=== PATIENT | male | born 1960 | race Caucasian/White ===

== ENCOUNTER → 2016-11-26 | Outpatient (CLI) | payer MEDICARE, OTHER ==
[2016-11-26 15:16] LABS: HEMATOCRIT 46.8 % (37.9-51.0); HGB HCT DIFFERENCE 1.2; MEAN CORPUSCULAR HEMOGLOBIN 31.6 pg (27.0-33.4); MEAN CORPUSCULAR HGB CONC 34.3 g/dL (32.0-36.0); MEAN CORPUSCULAR VOLUME 92 fl (80-97); RED BLOOD COUNT 5.08 10^6/uL (4.35-5.55)
== END ==
LOC: LAB 14:53
PROVIDERS: ATTEND Specialist
DX: G35 Multiple sclerosis (principal)
CPT/HCPCS: 36415; 84460; 85027

== ENCOUNTER 2016-12-11 22:08 | Emergency (ER) | payer MEDICARE, OTHER ==
--- NOTE | 2016-12-11 22:29 | ER Document Report ---
ED Medical Screen (RME) - General Chief Complaint: Palpitations Stated Complaint: POSSIBLE HEART PALPITATIONS Time seen by provider: 22:27 Mode of Arrival: Medic Information source: Patient Notes: 56-year-old male presents to ED for heart palpitations. States his heart rate went from in the low 30s due to fast for him to count. 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 States he has had one previous heart attack. States he has not had any pain today just to irregular heartbeat. He came in EMS and received aspirin in the EMS. I have greeted and performed a rapid initial assessment of this patient. A comprehensive ED assessment and evaluation of the patient, analysis of test results and completion of medical decision making process will be conducted by an additional ED providers. TRAVEL OUTSIDE OF THE [place] IN LAST 30 DAYS: No - Related Data Allergies/Adverse Reactions: cyclobenzaprine [From Flexeril] Allergy (Verified 07/27/16 08:10) hydroxyzine [From Vistaril] Allergy (Verified 07/27/16 08:10) Past Medical History - Social History Chew tobacco use (# tins/day): No Frequency of alcohol use: Rare Drug Abuse: None Renal/ Medical History: Denies: Hx Peritoneal Dialysis Physical Exam - Vital signs Vitals: Temp Pulse BP Pulse Ox 98.3 F 74 147/80 H 98 12/11/16 22:19 12/11/16 22:19 12/11/16 22:19 12/11/16 22:19 Course - Vital Signs Vital signs: Temp Pulse Resp BP Pulse Ox 98.3 F 74 147/80 H 98 12/11/16 22:19 12/11/16 22:19 12/11/16 22:19 12/11/16 22:19
[2016-12-11 22:47] LABS: ABSOLUTE BASOPHILS # (AUTO) 0.1 10^3/uL (0.0-0.2); ABSOLUTE EOSINOPHILS # (AUTO) 0.2 10^3/uL (0.0-0.6); ABSOLUTE LYMPHOCYTES (AUTO) 0.8 10^3/uL (0.5-4.7); ABSOLUTE MONOCYTES (AUTO) 0.6 10^3/uL (0.1-1.4); ABSOLUTE NEUT (AUTO) 2.8 10^3/uL (1.7-8.2); BASOPHILS % (AUTO) 1.2 % (0-2); EOSINOPHILS % (AUTO) 4.6 % (0-6); HEMATOCRIT 42.8 % (37.9-51.0); HEMOGLOBIN 14.9 g/dL (13.5-17.0); HGB HCT DIFFERENCE 1.9; LYMPHOCYTES % (AUTO) 18.5 % (13-45); MEAN CORPUSCULAR HEMOGLOBIN 31.6 pg (27.0-33.4); MEAN CORPUSCULAR HGB CONC 34.7 g/dL (32.0-36.0); MEAN CORPUSCULAR VOLUME 91 fl (80-97); MONOCYTES % (AUTO) 12.6 % (3-13); SEGMENTED NEUTROPHILS % (AUTO) 63.1 % (42-78); WHITE BLOOD COUNT 4.4 10^3/uL (4.0-10.5)
[2016-12-11 22:51] LABS: PARTIAL THROMBOPLASTIN TIME 27.8 SEC (23.5-35.8); PROTHROMBIN TIME 13.8 SEC (11.4-15.4)
[2016-12-11 22:58] LABS: ALANINE AMINOTRANSFERASE 20 U/L (21-72); ALKALINE PHOSPHATASE 58 U/L (38-126); ANION GAP 9 (5-19); ASPARTATE AMINO TRANSFERASE 14 U/L (17-59); BILIRUBIN,DIRECT 0.1 mg/dL (0.0-0.4); BILIRUBIN,TOTAL 0.5 mg/dL (0.2-1.3); BLOOD UREA NITROGEN 17 mg/dL (7-20); CALCIUM 8.9 mg/dL (8.4-10.2); CARBON DIOXIDE 28 mmol/L (22-30); CHLORIDE 105 mmol/L (98-107); CREATINE KINASE 113 U/L (55-170); GLUCOSE 101 mg/dL (75-110); POTASSIUM 3.6 mmol/L (3.6-5.0); SODIUM 142.1 mmol/L (137-145); TOTAL PROTEIN 6.2 g/dL (6.3-8.2)
[2016-12-11 23:10] LABS: CREATINE KINASE MB 0.62 ng/mL (<4.55)
[2016-12-11 23:17] LABS: TROPONIN I 0.044 ng/mL
--- NOTE | 2016-12-12 04:09 | ER Document Report ---
ED General - General Mode of Arrival: Medic Information source: Patient TRAVEL OUTSIDE OF THE [place] IN LAST 30 DAYS: No - HPI Onset: Other - See history of present illness note <BOUBACAR CARPENTER - Last Filed: 12/12/16 05:25> <MELISSAGIULIANOSCOTT - Last Filed: 12/17/16 21:11> - General Chief Complaint: Palpitations Stated Complaint: POSSIBLE HEART PALPITATIONS Notes: Patient is a 56-year-old male presents to the emergency department for heart palpitations. Patient states that he feels like his heart has flipped. Patient states that her his heartbeat was increased rapidly and then it went back to normal several times. Patient was evaluated by telecommunication engineer and local fire department personnel. 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 Patient states this occurred in [place] and he did not follow up, did not receive heart catheterization, or any further cardiac testing. Patient states his primary care at this time since moving from [place] is [facility]. Patient is allergic to cyclobenzaprine and hydroxyzine. (BOUBACAR CARPENTER) - Related Data Allergies/Adverse Reactions: cyclobenzaprine [From Flexeril] Allergy (Verified 07/27/16 08:10) hydroxyzine [From Vistaril] Allergy (Verified 07/27/16 08:10) Past Medical History - General Information source: Patient - Social History Smoking Status: Former Smoker Chew tobacco use (# tins/day): No Frequency of alcohol use: Rare Drug Abuse: None Family History: None Patient has suicidal ideation: No Patient has homicidal ideation: No <BOUBACAR CARPENTER - Last Filed: 12/12/16 05:25> Review of Systems - Review of Systems Constitutional: No symptoms reported EENT: No symptoms reported Cardiovascular: See HPI, Palpitations Respiratory: No symptoms reported Gastrointestinal: No symptoms reported Genitourinary: No symptoms reported Male Genitourinary: No symptoms reported Musculoskeletal: No symptoms reported Skin: No symptoms reported Hematologic/Lymphatic: No symptoms reported Neurological/Psychological: No symptoms reported -: Yes All other systems reviewed and negative <BOUBACAR CARPENTER - Last Filed: 12/12/16 05:25> Physical Exam - Vital signs Interpretation: Normal - General General appearance: Appears well, Alert In distress: Mild - HEENT Head: Normocephalic, Atraumatic Eyes: Normal Pupils: PERRL Mucous membranes: Moist - Respiratory Respiratory status: No respiratory distress Chest status: Nontender Breath sounds: Normal Chest palpation: Normal - Cardiovascular Rhythm: Regular Heart sounds: Normal auscultation Murmur: No - Abdominal Inspection: Normal Distension: No distension Bowel sounds: Normal Tenderness: Nontender Organomegaly: No organomegaly - Back Back: Normal, Nontender - Extremities General upper extremity: Normal inspection, Normal ROM, Normal strength General lower extremity: Normal inspection, Normal ROM, Normal strength - Neurological Neuro grossly intact: Yes Cognition: Normal Orientation: AAOx4 Grecia Coma Scale Eye Opening: Spontaneous Grecia Coma Scale Verbal: Oriented Grecia Coma Scale Motor: Obeys Commands Warrens Coma Scale Total: 15 Speech: Normal Sensory: Normal - Psychological Associated symptoms: Normal affect, Normal mood - Skin Skin Temperature: Warm Skin Moisture: Dry <BOUBACAR CARPENTER - Last Filed: 12/12/16 05:25> <SCOTT TORRES - Last Filed: 12/17/16 21:11> - Vital signs Vitals: Temp Pulse BP Pulse Ox 98.3 F 74 147/80 H 98 12/11/16 22:19 12/11/16 22:19 12/11/16 22:19 12/11/16 22:19 Course - Laboratory Result Diagrams: 12/11/16 22:30 12/11/16 22:30 <BOUBACAR CARPENTER - Last Filed: 12/12/16 05:25> - Laboratory Result Diagrams: 12/11/16 22:30 12/11/16 22:30 <SCOTT TORRES - Last Filed: 12/17/16 21:11> - Re-evaluation Re-evalutation: 12/12/16 05:34 I personally performed the services described in the documentation, reviewed and edited the documentation which was dictated to my scribe in my presence, and it accurately records my words and actions. Patient presents the emergency department with a chief complaint of palpitations. He says he went over to the fire department he was feel palpitations he thought that his heart rate had went down. He states that the paramedics were wanting a [facility] him initially saying he had ST elevation I reviewed the records and chart said ST elevation consider pericarditis but there was no ST elevation on the strip patient was not having any chest pain or shortness of breath and just having palpitations. On ED arrival he was not having chest pain or shortness of breath and EKG did not show any acute ST segment elevation or depression. He says he had an incident not to far back when he for he moved here in March where he lived that he was having similar type symptoms went to his doctor's office they thought they saw an old ME on his EKG but he was never diagnosed with an ME or saw a qualifications examiner or had cardiac stents placed. At this time he wants to go home they have appointments this morning he's been stable here hemodynamically negative acute labs other than a TSH level. states he can follow primary care physician one to 2 days I recommend he see an outpatient qualifications examiner disease had varying different concerns over the last several months of not been adequately worked up. He states that he will do so and does not want to be admitted to the hospital discharge in stable condition one to 2 day follow-up and discuss reasons for ED return sooner (SCOTT TORRES) - Vital Signs Vital signs: Temp Pulse Resp BP Pulse Ox 98.4 F 73 18 160/82 H 97 12/12/16 02:34 12/12/16 02:34 12/12/16 02:34 12/12/16 05:01 12/12/16 04:51 - Laboratory Laboratory results interpreted by me: 12/11/16 12/11/16 22:30 22:30 AST 14 L ALT 20 L Total Protein 6.2 L TSH 5.47 H Discharge <BOUBACAR CARPENTER - Last Filed: 12/12/16 05:25> <SCOTT TORRES - Last Filed: 12/17/16 21:11> - Discharge Clinical Impression: Palpitations Condition: Stable Disposition: HOME, SELF-CARE Additional Instructions: Palpitations Irregular or rapid heartbeat is called "palpitation." To diagnose the cause of palpitation, we have to "catch it in the act" with an EKG. Sinus Tachycardia: This is a rapid (but NORMAL) rhythm that can be due to fever, pain, anxiety, lack of sleep, over-exertion, or drugs. Cold medications, caffeine, and diet pills are particularly likely to cause tachycardia. Usually , all that's required is rest, reassurance, and avoiding caffeine, alcohol, nicotine, and unnecessary medicines. Paroxysmal Atrial Tachycardia (PAT): This abnormally rapid heartbeat is caused by a "short circuit" in the electrical system of the heart. It is not dangerous, unless other heart disease is present. These attacks of PAT may occur occasionally for years. Medication is available for treatment. Paroxysmal Atrial Fibrillation or Atrial Flutter: This is irregular electrical activity in the upper heart chamber. These abnormal rhythms often occur with valve disease or in hearts damaged by hardening of the arteries. These rhythms usually require further testing, for example a cardiac echo. Premature Beats: Extra beats occur more commonly after caffeine, nicotine , alcohol, cold pills, diet pills. Emotional stress or fatigue also provoke them. Extra beats are only dangerous when heart disease is present. They usually need no treatment. If they're frequent, or if evidence of heart disease develops, medication can be given to suppress them. If we were unable to "catch" the palpitations on EKG, you should try to get an EKG immediately if the symptoms begin again. Contact the physician at once if you develop persistent lightheadedness, shortness of breath, chest pain , or swelling of the ankles. Referrals: COSME RUSSO PA-C [Primary Care Provider] - Follow up tomorrow (In one to 2 days return for increasing worsening or new symptoms) Scribe Documentation - Scribe Written by Reese:: Boubacar Carpenter 12/12/16 5:30 acting as scribe for :: Melissa <BOUBACAR CARPENTER - Last Filed: 12/12/16 05:25>
[2016-12-12 05:12] VITALS: BP 160/82
--- NOTE | 2016-12-12 08:15 | EKG REPORT ---
SEVERITY:- ABNORMAL ECG - SINUS RHYTHM NONSPECIFIC INTRAVENTRICULAR CONDUCTION DELAY : Confirmed by: Mary Mccoy 12-Dec-2016 08:15:00
== END 2016-12-12 05:40 | disposition home or self-care (01) ==
LOC: ER 22:08
DX: R00.2 Palpitations (principal); Z88.8 Allergy status to other drugs, medicaments and biological substances; Z87.891 Personal history of nicotine dependence
CPT/HCPCS: 36415; 71020; 80053; 82550; 82553; 83735; 84443; 84484; 85025; 85610; 85730; 93005; 93010; 99285

== ENCOUNTER → 2017-02-12 | Outpatient (CLI) | payer MEDICARE, OTHER ==
[2017-02-12 10:11] LABS: FREE T3 5.86 pg/mL (2.77-5.27)
[2017-02-12 10:23] LABS: THYROID STIMULATING HORMONE 1.54 uIU/mL (0.47-4.68)
[2017-02-13 07:12] LABS: THYROID PEROXIDASE (TPO) AB 7 IU/mL (0-34)
[2017-02-13 13:21] LABS: THYROGLOBULIN AB <1.0 IU/mL (0.0-0.9)
== END ==
LOC: LAB 09:04
PROVIDERS: ATTEND Internal Medicine Endocrinology, Diabetes & Metabolism
DX: E03.9 Hypothyroidism, unspecified (principal); R00.2 Palpitations; R53.83 Other fatigue; G35 Multiple sclerosis; R13.10 Dysphagia, unspecified
CPT/HCPCS: 36415; 84439; 84443; 84481; 86376; 86800

== ENCOUNTER → 2017-03-10 | Outpatient (CLI) | payer MEDICARE, OTHER ==
--- NOTE | 2017-03-10 13:47 | RADIOLOGY REPORT (SQ) ---
EXAM DESCRIPTION: MRI HEAD COMBO COMPLETED DATE/TIME: 03/10/2017 1:27 pm REASON FOR STUDY: MS G35 MULTIPLE SCLEROSIS COMPARISON: None available TECHNIQUE: Multiplanar imaging includes noncontrasted T1, T2, FLAIR, diffusion with ADC map and post gadolinium contrast T1 sequences. Images stored on PACS. CONTRAST TYPE AND DOSE: 17 mL Multihance. RENAL FUNCTION: GFR > 60. LIMITATIONS: None. FINDINGS: ANATOMY: No developmental anomalies. Normal vascular flow voids. Pituitary fossa normal. CSF SPACES: Normal in size and contour. No hemorrhage. CEREBRUM: Sulci and gyri normal in size and contour. Multiple foci of increased bifrontal, biparieta l white matter signal on FLAIR imaging, likely minimal small vessel ischemic change or chronic demyel inating disease. No evidence of acute hemorrhage, mass, or extraaxial fluid collection. No abnormal e nhancement post contrast. No MR evidence of acute ischemic change. POSTERIOR FOSSA: Spotty increased FLAIR/ T2 signal in the mid geno, chronic demyelinating disease [place] mild small vessel ischemic change. No acute hemorrhage. No edema, masses, or mass effect. Interna l auditory canals, cerebellopontine angles, mastoids normal. No enhancing lesions. No abnormal enhanc ement post contrast. DIFFUSION IMAGING: Negative for acute or subacute infarction. ORBITS: No masses. Globes normal. PARANASAL SINUSES: No fluid levels. Mucosa normal. OTHER: No other significant finding. IMPRESSION: Spotty white matter disease in the hemispheres and geno, differential is mild small vess el ischemic change versus chronic demyelinating disease. No acute findings. TECHNICAL DOCUMENTATION: JOB ID: [id number] [employer]- All Rights Reserved
== END ==
LOC: RAD 09:56
PROVIDERS: ATTEND Specialist
DX: G35 Multiple sclerosis (principal)
CPT/HCPCS: 82565; 70553; A9577

== ENCOUNTER → 2017-04-11 | Outpatient (CLI) | payer MEDICARE, OTHER ==
--- NOTE | 2017-04-11 10:05 | RADIOLOGY REPORT (SQ) ---
EXAM DESCRIPTION: MRI THORACIC SPINE COMBO COMPLETED DATE/TIME: 04/11/2017 8:37 am REASON FOR STUDY: MS (G35) G35 MULTIPLE SCLEROSIS COMPARISON: None. TECHNIQUE: Sagittal and Axial imaging includes T1, T2, STIR and gradient echo sequences. T1 post ga dolinium sequences. CONTRAST TYPE AND DOSE: 17 mL Multihance. RENAL FUNCTION: GFR > 60. LIMITATIONS: None. FINDINGS: LOCALIZER: No worrisome findings. ALIGNMENT: Normal. VERTEBRAE: Intact. BONE MARROW: Normal. No marrow replacement or reactive changes. HARDWARE: Spinal stimulator electrode. CORD: Normal in size and signal intensity. SOFT TISSUES: No soft tissue masses. THORACIC DISCS T1-T12: No significant spinal stenosis or exit foraminal stenosis. LOWER CERVICAL: Incompletely imaged. No significant spinal stenosis or exit foraminal stenosis. UPPER LUMBAR: Incompletely imaged. No significant spinal stenosis or exit foraminal stenosis. ENHANCEMENT: No abnormal enhancement. OTHER: No other significant finding. IMPRESSION: NORMAL MRI THORACIC SPINE. TECHNICAL DOCUMENTATION: JOB ID: [id number] [employer]- All Rights Reserved
== END ==
LOC: RAD 07:18
PROVIDERS: ATTEND Psychiatry & Neurology Neurology
DX: G35 Multiple sclerosis (principal)
CPT/HCPCS: 72157; A9577

== ENCOUNTER → 2017-04-14 | Outpatient (CLI) | payer MEDICARE, OTHER ==
--- NOTE | 2017-04-14 15:31 | RADIOLOGY REPORT (SQ) ---
EXAM DESCRIPTION: MRI CERVICAL SPINE COMBO COMPLETED DATE/TIME: 04/14/2017 10:21 am REASON FOR STUDY: MS (G35) G35 MULTIPLE SCLEROSIS COMPARISON: None. TECHNIQUE: Sagittal and Axial imaging includes T1, T2, STIR and gradient echo sequences. T1 post walter olinium sequences. CONTRAST TYPE AND DOSE: 17 mL Multihance. RENAL FUNCTION: GFR > 60. LIMITATIONS: None. FINDINGS: ALIGNMENT: Normal. VERTEBRAE: Intact. BONE MARROW: No significant marrow abnormality. DISCS: Desiccation multiple levels. HARDWARE: None in the spine. CORD AND BASE OF BRAIN: Normal in size and signal intensity. SOFT TISSUES: No soft tissue masses. C1-C2: No significant spinal stenosis. C2-C3: No significant spinal stenosis or exit foraminal stenosis. C3-C4: No significant spinal stenosis or exit foraminal stenosis. C4-C5: No significant spinal stenosis or exit foraminal stenosis. C5-C6: No significant spinal stenosis or exit foraminal stenosis. C6-C7: No significant spinal stenosis or exit foraminal stenosis. C7-T1: No significant spinal stenosis or exit foraminal stenosis. UPPER THORACIC: Incompletely imaged. No significant spinal stenosis or exit foraminal stenosis. ENHANCEMENT: No abnormal enhancement. OTHER: No other significant finding. IMPRESSION: No evidence of demyelinating disease. COMMENT: None. TECHNICAL DOCUMENTATION: JOB ID: [id number] [employer]- All Rights Reserved
== END ==
LOC: RAD 08:59
PROVIDERS: ATTEND Psychiatry & Neurology Neurology
DX: G35 Multiple sclerosis (principal)
CPT/HCPCS: 72156; A9577

== ENCOUNTER → 2017-05-28 | Outpatient (CLI) | payer MEDICARE, OTHER ==
[2017-05-29 13:51] LABS: TESTOSTERONE FREE (DIRECT) 7.4 pg/mL (7.2-24.0)
== END ==
LOC: LAB 09:22
PROVIDERS: ATTEND Urology
DX: N52.9 Male erectile dysfunction, unspecified (principal); N40.1 Benign prostatic hyperplasia with lower urinary tract symptoms; E29.1 Testicular hypofunction
CPT/HCPCS: 36415; 84153; 84402; 84403

== ENCOUNTER 2017-10-21 15:07 | Observation (INO) | payer MEDICARE, OTHER ==
[2017-10-21 15:51] LABS: ABSOLUTE BASOPHILS # (AUTO) 0.1 10^3/uL (0.0-0.2); ABSOLUTE EOSINOPHILS # (AUTO) 0.2 10^3/uL (0.0-0.6); ABSOLUTE LYMPHOCYTES (AUTO) 0.8 10^3/uL (0.5-4.7); ABSOLUTE MONOCYTES (AUTO) 0.5 10^3/uL (0.1-1.4); ABSOLUTE NEUT (AUTO) 2.5 10^3/uL (1.7-8.2); BASOPHILS % (AUTO) 2.5 % (0-2); EOSINOPHILS % (AUTO) 4.2 % (0-6); HEMATOCRIT 46.2 % (37.9-51.0); HEMOGLOBIN 15.8 g/dL (13.5-17.0); LYMPHOCYTES % (AUTO) 19.4 % (13-45); MEAN CORPUSCULAR HEMOGLOBIN 31.4 pg (27.0-33.4); MEAN CORPUSCULAR HGB CONC 34.2 g/dL (32.0-36.0); MEAN CORPUSCULAR VOLUME 92 fl (80-97); MONOCYTES % (AUTO) 11.8 % (3-13); PLATELET COUNT 157 10^3/uL (150-450); RED BLOOD COUNT 5.04 10^6/uL (4.35-5.55); RED CELL DISTRIBUTION WIDTH 13.3 % (11.5-14.0); SEGMENTED NEUTROPHILS % (AUTO) 62.1 % (42-78); TOTAL CELLS COUNTED % (AUTO) 100 %
--- NOTE | 2017-10-21 15:54 | RADIOLOGY REPORT (SQ) ---
EXAM DESCRIPTION: CHEST SINGLE VIEW COMPLETED DATE/TIME: 10/21/2017 3:39 pm REASON FOR STUDY: bed 6 cp COMPARISON: 12/11/2016 EXAM PARAMETERS: NUMBER OF VIEWS: One view. TECHNIQUE: Single frontal radiographic view of the chest acquired. RADIATION DOSE: NA LIMITATIONS: None. FINDINGS: LUNGS AND PLEURA: No opacities, masses or pneumothorax. No pleural effusion. MEDIASTINUM AND HILAR STRUCTURES: No masses. Contour normal. HEART AND VASCULAR STRUCTURES: Heart normal in size. Normal vasculature. BONES: No acute findings. HARDWARE: Spinal stimulator OTHER: No other significant finding. IMPRESSION: NO ACUTE RADIOGRAPHIC FINDING IN THE CHEST. TECHNICAL DOCUMENTATION: JOB ID: [id number] [employer]- All Rights Reserved
[2017-10-21 16:13] LABS: ALANINE AMINOTRANSFERASE 30 U/L (21-72); ALBUMIN 3.7 g/dL (3.5-5.0); ALKALINE PHOSPHATASE 44 U/L (38-126); ANION GAP 8 (5-19); ASPARTATE AMINO TRANSFERASE 19 U/L (17-59); BILIRUBIN,DIRECT 0.1 mg/dL (0.0-0.4); BILIRUBIN,TOTAL 0.2 mg/dL (0.2-1.3); BLOOD UREA NITROGEN 15 mg/dL (7-20); CALCIUM 8.7 mg/dL (8.4-10.2); CARBON DIOXIDE 27 mmol/L (22-30); CHLORIDE 104 mmol/L (98-107); CREATINE KINASE 63 U/L (55-170); GLUCOSE 98 mg/dL (75-110); POTASSIUM 3.8 mmol/L (3.6-5.0); SODIUM 139.1 mmol/L (137-145); TOTAL PROTEIN 5.8 g/dL (6.3-8.2)
[2017-10-21 16:24] LABS: CREATINE KINASE MB 0.33 ng/mL (<4.55)
[2017-10-21 16:36] LABS: TROPONIN I < 0.012 ng/mL
--- NOTE | 2017-10-21 17:40 | ER Document Report ---
ED Cardiac - General Chief Complaint: Chest Pain Stated Complaint: CHEST PAIN Time Seen by Provider: 10/21/17 17:40 Notes: Patient is complaining of pain in the center of the front of his chest in the substernal region which also goes across the front of the chest. This pain began last night and has continued until this afternoon. He thinks he was able to sleep, however. But he is aware of this discomfort since he woke up this morning. At about 2 PM, patient called EMS who gave him 4 baby aspirins and then 1 sublingual nitroglycerin and the patient's pain subsided entirely. He was nauseated after that and was given Zofran IV. He says now he does not have any pain at all. Patient has a history of a heart attack when he lived in [place] in February 2016. Denies any difficulty breathing or shortness of breath. Has nausea, but no diarrhea and no vomiting. Patient is a former cigarette smoker, having stopped about a year or so ago. Patient's says that he has been under a lot of stress lately, particularly financial stress. Patient has a history of being diagnosed with MS several years ago. 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 History of hypothyroidism and BPH. TRAVEL OUTSIDE OF THE [place] IN LAST 30 DAYS: No - Related Data Allergies/Adverse Reactions: cyclobenzaprine [From Flexeril] Allergy (Verified 07/27/16 08:10) hydroxyzine [From Vistaril] Allergy (Verified 07/27/16 08:10) Past Medical History - Social History Smoking Status: Former Smoker Chew tobacco use (# tins/day): No Frequency of alcohol use: None Drug Abuse: Marijuana Family History: None, Reviewed & Not Pertinent Patient has suicidal ideation: No Patient has homicidal ideation: No - Past Medical History Cardiac Medical History: Reports: Hx Coronary Artery Disease, Hx Heart Attack - 2016, Hx Hypertension - On no medications GI Medical History: Denies: Hx Gastroesophageal Reflux Disease Psychiatric Medical History: Reports: Hx Depression Past Surgical History: Reports: Hx Cholecystectomy, Hx Orthopedic Surgery, Hx Testicular Surgery - Immunizations Hx Diphtheria, Pertussis, Tetanus Vaccination: No Review of Systems - Review of Systems Notes: REVIEW OF SYSTEMS: CONSTITUTIONAL : Denies fever. Vital signs are all essentially normal. Does not appear to be in discomfort or pain at this time. EENT: Denies eye, ear, nose or mouth or throat pain or other symptoms. CARDIOVASCULAR: See HPI. RESPIRATORY: Denies cough, chest congestion, or shortness of breath. GASTROINTESTINAL: Denies abdominal pain but has been nauseated. Denies vomiting or diarrhea. GENITOURINARY: Denies difficulty or painful urinating, urinary frequency, blood in urine. MUSCULOSKELETAL: Has chronic back pain. Denies neck pain. Denies joint pain or swelling. SKIN: Denies rash or skin lesions. NEUROLOGICAL: Denies LOC or altered mental status. Denies headache. Denies sensory loss or motor deficits. ALL OTHER SYSTEMS REVIEWED AND NEGATIVE. Physical Exam - Vital signs Vitals: Pulse Ox 99 10/21/17 15:07 Interpretation: Normal Notes: PHYSICAL EXAMINATION: GENERAL: Well-appearing, in no acute distress. Eating dinner. HEAD: Atraumatic, normocephalic. NECK: Normal range of motion, supple. LUNGS: Breath sounds clear and equal bilaterally. No chest wall tenderness. HEART: Regular rate and rhythm without murmurs. ABDOMEN: Soft, nontender. No guarding or rebound. No masses. BACK: No tenderness throughout entire back. EXTREMITIES: Normal range of motion without pain. No pain or swelling to suggest blood clots. Negative Homans. NEUROLOGICAL: Normal speech, normal gait. Normal sensory, motor, and reflex exams. Awake, alert, and oriented x3. Cranial nerves normal. PSYCH: Normal mood, normal affect. SKIN: Warm, dry, no rashes. Course - Re-evaluation Re-evalutation: 10/21/17 18:45 Patient's many risk factors, including previous DE, former smoker up until about a year ago, high blood pressure, etc. along with his immediate pain relief with a single sublingual nitroglycerin, was sufficient for me to justify recommending admission for further inpatient testing. Patient is agreeable. Hospitalist notified and will admit the patient. - Vital Signs Vital signs: Temp Pulse Resp BP Pulse Ox 99 10/21/17 15:07 - Laboratory Result Diagrams: 10/21/17 15:25 10/21/17 15:25 Laboratory results interpreted by me: 10/21/17 10/21/17 15:25 15:25 Basophils % 2.5 H Total Protein 5.8 L - Diagnostic Test Radiology results interpreted by me: 10/21/17 18:44 Chest x-ray is normal. - EKG Interpretation by Oh EKG shows normal: Sinus rhythm Rate: Normal Rhythm: NSR Additional EKG results interpreted by nv: 10/21/17 18:44 EKG is normal. Discharge - Discharge Clinical Impression: Chest pain Condition: Stable Disposition: ADMITTED OBSERVATION Admitting Provider: Hospitalist Unit Admitted: Telemetry Referrals: COSME RUSSO PA-C [Primary Care Provider] - Follow up as needed
[2017-10-21] MEDS ORDERED: ZOLPIDEM TARTRATE 5 MG TABLET PO PRN (18:31)
[2017-10-21] MEDS ORDERED: ACETAMINOPHEN 325 MG TABLET PO PRN (18:31)
[2017-10-21] MEDS ORDERED: MAGNESIUM HYDROXIDE SUSP 30 ML UDCUP PO PRN (18:31)
--- NOTE | 2017-10-21 18:49 | PDOC H&P ---
History of Present Illness Admission Date/PCP: COSME RUSSO PA-C Patient complains of: chest pain this evening History of Present Illness: LAVON MALDONADO is a 57 year old male who presented with non radiating chest pain , currently resolved. Denies any nausea or vomiting or diaphoresis. He received 4 81mg ASA as well as a SL NTG with resolution of chest pain. He denies prior episodes of chest pain. He did give history of HTN that has not been treated previously. Past Medical History Cardiac Medical History: Reports: Hypertension - On no medications Pulmonary Medical History: Denies: Asthma, Bronchitis, Chronic Obstructive Pulmonary Disease (COPD), Pneumonia Neurological Medical History: Reports: Multiple Sclerosis Denies: Seizures Endocrine Medical History: Reports: Hypothyroidism GI Medical History: Denies: Gastroesophageal Reflux Disease Musculoskeltal Medical History: Denies: Arthritis Psychiatric Medical History: Reports: Depression Hematology: Denies: Anemia Past Surgical History Past Surgical History: Reports: Cholecystectomy, Orthopedic Surgery Social History Smoking Status: Former Smoker Family History Family History: None, CAD - in maternal, paternal family Parental Family History Reviewed: Yes Children Family History Reviewed: Unknown Sibling(s) Family History Reviewed.: No Medication/Allergy Home Medications: Baclofen [Baclofen 10 mg Tablet] 10 mg PO BID PRN 07/23/16 Carbamazepine [Tegretol 200 Mg Tablet] 400 mg PO BID 07/23/16 Levothyroxine Sodium [Synthroid 0.025 mg Tablet] 0.025 mg PO DAILY 07/23/16 Primidone [Mysoline] 100 mg PO QHS 07/23/16 Tamsulosin HCl [Flomax] 0.4 mg PO BID 07/23/16 Testosterone Cypionate 200 mg IM Q14D 07/23/16 Allergies/Adverse Reactions: cyclobenzaprine [From Flexeril] Allergy (Verified 07/27/16 08:10) hydroxyzine [From Vistaril] Allergy (Verified 07/27/16 08:10) Review of Systems All systems: reviewed and no additional remarkable complaints except as stated Musculoskeletal: PRESENT: muscle weakness Physical Exam Vital Signs: Temp Pulse Resp BP Pulse Ox 99 10/21/17 15:07 General appearance: PRESENT: no acute distress, well-developed, well-nourished Head exam: PRESENT: atraumatic, normocephalic Eye exam: PRESENT: conjunctiva pink, EOMI, PERRLA. ABSENT: scleral icterus Ear exam: PRESENT: normal external ear exam Mouth exam: PRESENT: moist, tongue midline Neck exam: ABSENT: carotid bruit, JVD, lymphadenopathy, thyromegaly Respiratory exam: PRESENT: clear to auscultation fernie. ABSENT: rales, rhonchi, wheezes Cardiovascular exam: PRESENT: RRR. ABSENT: diastolic murmur, rubs, systolic murmur Pulses: PRESENT: normal dorsalis pedis pul Vascular exam: PRESENT: normal capillary refill GI/Abdominal exam: PRESENT: normal bowel sounds, soft. ABSENT: distended, guarding, mass, organolmegaly, rebound, tenderness Rectal exam: PRESENT: deferred Extremities exam: PRESENT: full ROM. ABSENT: calf tenderness, clubbing, pedal edema Neurological exam: PRESENT: alert, awake, oriented to person, oriented to place , oriented to time, oriented to situation, CN II-XII grossly intact. ABSENT: motor sensory deficit Psychiatric exam: PRESENT: appropriate affect, normal mood. ABSENT: homicidal ideation, suicidal ideation Skin exam: PRESENT: dry, intact, warm. ABSENT: cyanosis, rash Results Laboratory Results: 10/21/17 15:25 10/21/17 15:25 10/21/17 10/21/17 15:25 15:25 WBC 4.0 RBC 5.04 Hgb 15.8 Hct 46.2 MCV 92 MCH 31.4 MCHC 34.2 RDW 13.3 Plt Count 157 Seg Neutrophils % 62.1 Lymphocytes % 19.4 Monocytes % 11.8 Eosinophils % 4.2 Basophils % 2.5 H Absolute Neutrophils 2.5 Absolute Lymphocytes 0.8 Absolute Monocytes 0.5 Absolute Eosinophils 0.2 Absolute Basophils 0.1 Sodium 139.1 Potassium 3.8 Chloride 104 Carbon Dioxide 27 Anion Gap 8 BUN 15 Creatinine 0.89 Est GFR ( Amer) > 60 Est GFR (Non-Af Amer) > 60 Glucose 98 Calcium 8.7 Total Bilirubin 0.2 AST 19 ALT 30 Alkaline Phosphatase 44 Total Protein 5.8 L Albumin 3.7 10/21/17 10/21/17 15:25 15:25 Creatine Kinase 63 CK-MB (CK-2) 0.33 Troponin I < 0.012 Impressions: Chest X-Ray 10/21/17 15:12 IMPRESSION: NO ACUTE RADIOGRAPHIC FINDING IN THE CHEST. Assessment & Plan - Diagnosis (1) Chest pain, atypical Is this a current diagnosis for this admission?: Yes Plan: Currently chest pain free. Patient denies any h/o prior CAD to me. Will obtain cardiac enzymes, and schedule stress test. (2) HTN (hypertension) Qualifiers: Hypertension type: essential hypertension Qualified Code(s): I10 - Essential (primary) hypertension Is this a current diagnosis for this admission?: Yes Plan: Will start on Metoprolol (3) Multiple sclerosis Is this a current diagnosis for this admission?: Yes Plan: Chronic - Time Time Spent: 30 to 50 Minutes Medications reviewed and adjusted accordingly: Yes Anticipated discharge: Home Within: within 24 hours - Inpatient Certification Medical Necessity: Need For Continuous Telemetry Monitoring
[2017-10-21] MEDS ORDERED: METOPROLOL SUCCINATE 25 MG TAB.SR.24H PO ONE (19:00)
[2017-10-21] MEDS ORDERED: ENOXAPARIN SODIUM INJ 40 MG/0.4 ML DISP.SYRIN SUBCUT ONE (19:15)
[2017-10-21] MEDS: OXYCODONE-ACETAMINOPHEN 5-325 MG TABLET PO PRN (21:56)
[2017-10-21] MEDS: ONDANSETRON HCL INJ/PF 4 MG/2 ML SDV IV PRN (21:56)
--- NOTE | 2017-10-21 22:42 | EKG REPORT ---
SEVERITY:- ABNORMAL ECG - SINUS RHYTHM NONSPECIFIC INTRAVENTRICULAR CONDUCTION DELAY : Confirmed by: Mary Mccoy 21-Oct-2017 22:41:45
[2017-10-21] MEDS ORDERED: PRIMIDONE 50 MG TABLET PO ONE (22:45)
[2017-10-22] MEDS ORDERED: CARBAMAZEPINE 200 MG TABLET ONE (00:26)
[2017-10-22] MEDS ORDERED: PRIMIDONE 50 MG TABLET ONE (00:48)
[2017-10-22] MEDS: OXYCODONE-ACETAMINOPHEN 5-325 MG TABLET PO PRN (04:41)
[2017-10-22] MEDS ORDERED: LEVOTHYROXINE SODIUM 0.025 MG TABLET PO SCH (06:00)
[2017-10-22] MEDS ORDERED: METOPROLOL SUCCINATE 25 MG TAB.SR.24H PO SCH (10:00)
[2017-10-22] MEDS ORDERED: ENOXAPARIN SODIUM INJ 40 MG/0.4 ML DISP.SYRIN SUBCUT SCH (10:00)
[2017-10-22] MEDS ORDERED: TAMSULOSIN HCL 0.4 MG CAP.SR.24H PO SCH (10:00)
[2017-10-22] MEDS ORDERED: TERIFLUNOMIDE 14 MG PO SCH (10:00)
[2017-10-22] MEDS ORDERED: CARBAMAZEPINE 200 MG TABLET PO SCH (10:00)
[2017-10-22] MEDS: ONDANSETRON HCL INJ/PF 4 MG/2 ML SDV IV PRN (10:59)
[2017-10-22] MEDS ORDERED: AMINOPHYLLINE INJ/PF 250 MG/10 ML SDV IV ONE (11:07)
[2017-10-22] MEDS ORDERED: REGADENOSON INJ 0.4 MG/5 ML DISP.SYRIN IV ONE (11:07)
[2017-10-22] MEDS ORDERED: ASPIRIN 81 MG TABLET, ENT COATED PO SCH (12:00)
--- NOTE | 2017-10-22 13:15 | DRAGON STRESS TEST REPORT ---
INTRAVENOUS LEXISCAN CARDIOLITE STRESS TEST USING SINGLE PHOTON EMMISION COMPUTERIZED TOMOGRAPHIC. DATE OF PROCEDURE: October 22, 2017, INDICATION : Chest pain CARDIAC RISK FACTORS: Hypertension RESTING EKG: Sinus rhythm without any baseline ST-T wave changes STRESS EKG: No significant changes noted with LexiScan bolus REASON FOR TERMINATION: Protocol. PROCEDURE REPORT: Baseline heart rate 71 beats per minute with blood pressure of 147/90. Patient had no significant complaints. Heart rate at 2 minutes post bolus 129 with a blood pressure of 179/76. 3 minutes post bolus heart rate 130 with blood pressure of 193/93. Recovery heart rate 100 blood pressure 186/96. No significant EKG changes were noted. Patient had no significant complaints during the procedure or postprocedure. Patient injected with Aminophyllin 75 mg at 3 minutes or later after Lexiscan bolus. CONCLUSIONS: Normal EKG and hemodynamic response to IV LexiScan. NUCLEAR DATA: At rest the patient was given 11.03 millicuries of technetium 99 sestamibi injected intravenously. As per protocol rest gated SPECT images were obtained. On day of stress test, the patient was given intravenous LexiScan at a dose of 0.4 mg in 5 mL intravenously, followed by flush with normal saline. Subsequently the stress dose of 30.4 millicuries of technetium 99 sestamibi was injected intravenously. As per protocol stress gated images were obtained. NUCLEAR INTERPRETATION: Both raw and processed data were used for interpretation. Visual, qualitative, computer-generated quantitative data was used. There was good myocardial uptake of technetium compound. Motion artifact and soft tissue attenuations were noted. Increased visceral uptake was noted. No definitive areas of transient perfusion defect noted, except for borderline decreased uptake in the distal inferior wall which is probably related to differential in diaphragmatic attenuation artifact. Cannot rule out an area of mild ischemia however STS score is low at 1 and medical management will be perfectly satisfactory. In addition no corresponding wall motion abnormalities were noted. No definitive areas of fixed perfusion defect or scars noted. EKG gated imaging showed LV EF at 47 %, rest and stress gated EF similar visually. T. I D. ratio was 0.99. Lung heart ratio noted to be within normal limits 0.26. No significant extracardiac and abnormal radiotracer activities were noted. RV free wall uptake was noted to be WNL. IMPRESSION: Also refer to comments under nuclear interpretation. Also test results needs to be interpreted in the context of pretest probability. 1. No definitive areas of transient perfusion defect noted. Please refer to comments under nuclear interpretation. 2. There is no definitive scintigraphic evidence of myocardial infarction/scar. 3. EKG gated imaging shows left ventricular ejection fraction of approx. 47 %. 4. Clinical correlation requested as occasionally single vessel disease or balanced ischemia could be missed. In approximately 10% of the cases Lexiscan may not cause adequate vasodilatory stress. RECOMMENDATIONS: Aggressive risk factor modification and medical management. Further evaluation may be needed if continued symptoms or other high risk indicators are noted on clinical evaluation. Close cardiology follow-up is also recommended. Clinical correlation with echocardiogram derived ejection fraction. Inability to exercise by itself can lead to increased cardiovascular event risks. Consider cardiology consultation and or follow-up if clinically indicated. I am available for cardiology evaluation and consultation if requested by the line puller, unless patient already has a chemical compounder. MIAN
[2017-10-22 14:09] VITALS: BP 172/91
--- NOTE | 2017-10-22 14:59 | Physician Advisory Note ---
Physician Advisor ProgressNote .: [facility], I have reviewed the medical record for this patient. Physician Advisor Statement: Please consider documenting, if you agree: 1. "Acute CP, suspect may be due to " Thanks! CK
[2017-10-22] MEDS ORDERED: PRIMIDONE 50 MG TABLET PO SCH (22:00)
== END 2017-10-22 14:41 | disposition home or self-care (01) ==
LOC: ER 15:07 → EH 19:36 → 4N 10-22 04:00
PROVIDERS: ADMIT Internal Medicine; ATTEND Internal Medicine
DX: R07.89 Other chest pain (principal); I10 Essential (primary) hypertension; G35 Multiple sclerosis; E03.9 Hypothyroidism, unspecified; R11.0 Nausea; N40.0 Benign prostatic hyperplasia without lower urinary tract symptoms; I25.10 Atherosclerotic heart disease of native coronary artery without angina pectoris; G89.29 Other chronic pain; M54.9 Dorsalgia, unspecified; I25.2 Old myocardial infarction; Z82.49 Family history of ischemic heart disease and other diseases of the circulatory system; Z87.891 Personal history of nicotine dependence; Z98.890 Other specified postprocedural states
CPT/HCPCS: 93005; 99285; 96372; 36415 ×2; 82553; 82550; 85025; 80053; 84484 ×2; 93017; 71045; 78452; 93010; G0378 ×3; A9500; J2785; A9270 ×10; J1650; J3490; J2405 ×2; J0280; Q9969

== ENCOUNTER → 2017-12-10 | Outpatient (CLI) | payer MEDICARE ==
[2017-12-10 14:38] LABS: ABSOLUTE EOSINOPHILS # (AUTO) 0.1 10^3/uL (0.0-0.6); ABSOLUTE LYMPHOCYTES (AUTO) 0.5 10^3/uL (0.5-4.7); ABSOLUTE MONOCYTES (AUTO) 0.3 10^3/uL (0.1-1.4); ABSOLUTE NEUT (AUTO) 1.6 10^3/uL (1.7-8.2); BASOPHILS % (AUTO) 1.6 % (0-2); EOSINOPHILS % (AUTO) 3.2 % (0-6); HEMATOCRIT 44.4 % (37.9-51.0); LYMPHOCYTES % (AUTO) 21.2 % (13-45); MEAN CORPUSCULAR HGB CONC 33.7 g/dL (32.0-36.0); MEAN CORPUSCULAR VOLUME 92 fl (80-97); MONOCYTES % (AUTO) 12.5 % (3-13); PLATELET COUNT 148 10^3/uL (150-450); RED BLOOD COUNT 4.83 10^6/uL (4.35-5.55); RED CELL DISTRIBUTION WIDTH 13.9 % (11.5-14.0); SEGMENTED NEUTROPHILS % (AUTO) 61.5 % (42-78); TOTAL CELLS COUNTED % (AUTO) 100 %; WHITE BLOOD COUNT 2.5 10^3/uL (4.0-10.5)
[2017-12-10 14:58] LABS: ALANINE AMINOTRANSFERASE 45 U/L (21-72); ASPARTATE AMINO TRANSFERASE 19 U/L (17-59)
== END ==
LOC: LAB 14:13
PROVIDERS: ATTEND Urology
DX: G35 Multiple sclerosis (principal); E29.1 Testicular hypofunction
CPT/HCPCS: 36415; 84153; 84403; 84450; 84460; 85025

== ENCOUNTER → 2018-02-02 | Outpatient (CLI) | payer MEDICARE, OTHER ==
[2018-02-02 18:59] LABS: ABSOLUTE BASOPHILS # (AUTO) 0.1 10^3/uL (0.0-0.2); ABSOLUTE EOSINOPHILS # (AUTO) 0.2 10^3/uL (0.0-0.6); ABSOLUTE LYMPHOCYTES (AUTO) 0.7 10^3/uL (0.5-4.7); ABSOLUTE MONOCYTES (AUTO) 0.5 10^3/uL (0.1-1.4); ABSOLUTE NEUT (AUTO) 2.2 10^3/uL (1.7-8.2); BASOPHILS % (AUTO) 1.8 % (0-2); EOSINOPHILS % (AUTO) 5.6 % (0-6); HEMATOCRIT 43.7 % (37.9-51.0); HEMOGLOBIN 14.7 g/dL (13.5-17.0); LYMPHOCYTES % (AUTO) 20.5 % (13-45); MEAN CORPUSCULAR HEMOGLOBIN 31.1 pg (27.0-33.4); MEAN CORPUSCULAR HGB CONC 33.7 g/dL (32.0-36.0); MEAN CORPUSCULAR VOLUME 92 fl (80-97); MONOCYTES % (AUTO) 12.9 % (3-13); PLATELET COUNT 165 10^3/uL (150-450); RED BLOOD COUNT 4.73 10^6/uL (4.35-5.55); RED CELL DISTRIBUTION WIDTH 14.4 % (11.5-14.0); SEGMENTED NEUTROPHILS % (AUTO) 59.2 % (42-78); TOTAL CELLS COUNTED % (AUTO) 100 %; WHITE BLOOD COUNT 3.7 10^3/uL (4.0-10.5)
[2018-02-02 19:18] LABS: ALANINE AMINOTRANSFERASE 35 U/L (21-72); ASPARTATE AMINO TRANSFERASE 20 U/L (17-59)
== END ==
LOC: OD 17:30
PROVIDERS: ATTEND Psychiatry & Neurology Neurology
DX: G35 Multiple sclerosis (principal)
CPT/HCPCS: 36415; 84450; 84460; 85025

== ENCOUNTER → 2018-08-19 | Outpatient (CLI) | payer MEDICARE, MEDICAID ==
--- NOTE | 2018-08-19 14:30 | RADIOLOGY REPORT (SQ) ---
EXAM DESCRIPTION: HIP LEFT AP/LATERAL COMPLETED DATE/TIME: 08/19/2018 2:10 pm REASON FOR STUDY: PAIN IN UNSPEC HIP (M25.559) M25.559 PAIN IN UNSPECIFIED HIP COMPARISON: None. NUMBER OF VIEWS: Two views. TECHNIQUE: AP pelvis and additional frog-leg view of the left hip. LIMITATIONS: None. FINDINGS: MINERALIZATION: Normal. LEFT HIP: No fracture or dislocation. No worrisome bone lesions. Very mild left hip joint space salma rowing without bulky bony spurring. RIGHT HIP: No fracture or dislocation. No worrisome bone lesions. Very mild right hip joint space n arrowing without bulky bony spurring. PUBIS AND ISCHIUM: No fracture. PELVIS: No fracture. SACRUM: Unremarkable. Mild right inferior SI joint bony sclerosis, moderate left upper SI joint bony sclerosis LOWER LUMBAR SPINE: Prior fusion at L5-S1 with bilateral laminectomy. SOFT TISSUES: No findings. OTHER: Neurostimulator battery pack over the left gluteal region IMPRESSION: Very mild bilateral hip joint space narrowing without significant bulky bony spurring TECHNICAL DOCUMENTATION: JOB ID: [id number] [employer]- All Rights Reserved Reading location - IP/workstation name: [email or web address]
== END ==
LOC: RAD 13:44
PROVIDERS: ATTEND Physician Assistant
DX: M25.552 Pain in left hip (principal)

== ENCOUNTER 2018-11-26 17:00 | Emergency (ER) | payer MEDICARE, MEDICAID ==
[2018-11-26] MEDS ORDERED: MORPHINE SULFATE 10 MG/ML INJ IV ONE (17:20)
[2018-11-26] MEDS ORDERED: ONDANSETRON HCL INJ/PF 4 MG/2 ML SDV IV ONE (17:21)
--- NOTE | 2018-11-26 17:23 | ER Document Report ---
ED Medical Screen (RME) - General Chief Complaint: Inability to Void Stated Complaint: ABNORMAL BLEEDING Time Seen by Provider: 11/26/18 17:21 Primary Care Provider: PAU KENNEDY [Primary Care Provider] - Follow up as needed TRAVEL OUTSIDE OF THE [place] IN LAST 30 DAYS: No - HPI Notes: 11/26/18 17:21 Patient complaining of inability to urinate which started suddenly today. She said he attempted to urinate and what came out was blood clots. Patient in a severe pain. Exam shows suprapubic tenderness to palpation. - Related Data Allergies/Adverse Reactions: cyclobenzaprine [From Flexeril] Allergy (Verified 11/26/18 17:05) hydroxyzine [From Vistaril] Allergy (Verified 11/26/18 17:05) Past Medical History - Past Medical History Cardiac Medical History: Reports: Hx Coronary Artery Disease, Hx Heart Attack, Hx Hypertension Pulmonary Medical History: Denies: Hx Asthma, Hx Bronchitis, Hx COPD, Hx Pneumonia Neurological Medical History: Denies: Hx Cerebrovascular Accident, Hx Seizures Endocrine Medical History: Reports: Hx Hypothyroidism Renal/ Medical History: Denies: Hx Peritoneal Dialysis GI Medical History: Denies: Hx Gastroesophageal Reflux Disease Musculoskeltal Medical History: Denies Hx Arthritis Psychiatric Medical History: Reports: Hx Depression Past Surgical History: Reports: Hx Cholecystectomy, Hx Orthopedic Surgery, Hx Testicular Surgery - Immunizations Hx Diphtheria, Pertussis, Tetanus Vaccination: No History of Influenza Vaccine for 06/2017 - 11/2017 Season: Yes Physical Exam - Vital signs Vitals: Temp Pulse Resp BP Pulse Ox 98.1 F 108 H 24 H 174/95 H 98 11/26/18 17:07 11/26/18 17:07 11/26/18 17:07 11/26/18 17:07 11/26/18 17:07 Course - Vital Signs Vital signs: Temp Pulse Resp BP Pulse Ox 98.1 F 108 H 24 H 174/95 H 98 11/26/18 17:07 11/26/18 17:07 11/26/18 17:07 11/26/18 17:07 11/26/18 17:07 Doctor's Discharge - Discharge Referrals: PAU KENNEDY [Primary Care Provider] - Follow up as needed
[2018-11-26 17:49] LABS: ABSOLUTE EOSINOPHILS # (AUTO) 0.1 10^3/uL (0.0-0.6); ABSOLUTE LYMPHOCYTES (AUTO) 0.9 10^3/uL (0.5-4.7); ABSOLUTE MONOCYTES (AUTO) 0.5 10^3/uL (0.1-1.4); ABSOLUTE NEUT (AUTO) 2.9 10^3/uL (1.7-8.2); BASOPHILS % (AUTO) 0.8 % (0-2); EOSINOPHILS % (AUTO) 2.7 % (0-6); HEMATOCRIT 42.6 % (37.9-51.0); HEMOGLOBIN 14.6 g/dL (13.5-17.0); LYMPHOCYTES % (AUTO) 19.3 % (13-45); MEAN CORPUSCULAR HEMOGLOBIN 31.3 pg (27.0-33.4); MEAN CORPUSCULAR HGB CONC 34.2 g/dL (32.0-36.0); MEAN CORPUSCULAR VOLUME 91 fl (80-97); MONOCYTES % (AUTO) 11.8 % (3-13); PLATELET COUNT 194 10^3/uL (150-450); RED BLOOD COUNT 4.66 10^6/uL (4.35-5.55); RED CELL DISTRIBUTION WIDTH 13.5 % (11.5-14.0); SEGMENTED NEUTROPHILS % (AUTO) 65.4 % (42-78); TOTAL CELLS COUNTED % (AUTO) 100 %; WHITE BLOOD COUNT 4.5 10^3/uL (4.0-10.5)
[2018-11-26 17:55] LABS: INTERNATIONAL RATION (INR) 0.93; PARTIAL THROMBOPLASTIN TIME 23.5 SEC (23.5-35.8); PROTHROMBIN TIME 12.9 SEC (11.4-15.4)
[2018-11-26 18:06] LABS: ALANINE AMINOTRANSFERASE 31 U/L (21-72); ALBUMIN 4.5 g/dL (3.5-5.0); ALKALINE PHOSPHATASE 55 U/L (38-126); ANION GAP 12 (5-19); ASPARTATE AMINO TRANSFERASE 19 U/L (17-59); BILIRUBIN,DIRECT 0.3 mg/dL (0.0-0.4); BILIRUBIN,TOTAL 0.4 mg/dL (0.2-1.3); BLOOD UREA NITROGEN 21 mg/dL (7-20); CALCIUM 9.6 mg/dL (8.4-10.2); CARBON DIOXIDE 22 mmol/L (22-30); CHLORIDE 105 mmol/L (98-107); GLUCOSE 116 mg/dL (75-110); POTASSIUM 3.9 mmol/L (3.6-5.0); SODIUM 138.5 mmol/L (137-145); TOTAL PROTEIN 6.9 g/dL (6.3-8.2)
[2018-11-26] MEDS ORDERED: LIDOCAINE 2% URO-JET 5 ML KIT MM ONE ×3 (19:08→21:26)
[2018-11-26] MEDS ORDERED: HYDROMORPHONE HCL INJ/PF 2 MG/ML AMPULE IV ONE ×3 (19:47→23:34)
[2018-11-26] MEDS ORDERED: CEFTRIAXONE INJ 1000 MG VIAL IV ONE (19:57)
--- NOTE | 2018-11-26 20:01 | ER Document Report ---
ED GI/ - General Chief Complaint: Inability to Void Stated Complaint: ABNORMAL BLEEDING Time Seen by Provider: 11/26/18 17:21 Primary Care Provider: PAU KENNEDY [NO DONI MD] - Follow up as needed Notes: 58-year-old male to emergency department chief complaint of inability to urinate. Patient had a prostate operation several weeks ago. Has been fine. Began having large amount of bleeding. Now he cannot urinate. Extremely uncomfortable. TRAVEL OUTSIDE OF THE [place] IN LAST 30 DAYS: No - HPI Patient complains to provider of: Hematuria, Urinary retention Onset: Just prior to arrival Timing/Duration: Gradual, Worse Quality of pain: Achy Severity at maximum: Severe Severity in ED: Severe - Related Data Allergies/Adverse Reactions: cyclobenzaprine [From Flexeril] Allergy (Verified 11/26/18 17:05) hydroxyzine [From Vistaril] Allergy (Verified 11/26/18 17:05) Past Medical History - General Information source: Patient - Social History Smoking Status: Never Smoker Frequency of alcohol use: None Drug Abuse: None Lives with: Spouse/Significant other Family History: None, Reviewed & Not Pertinent Patient has suicidal ideation: No Patient has homicidal ideation: No - Past Medical History Cardiac Medical History: Reports: Hx Coronary Artery Disease, Hx Heart Attack, Hx Hypertension Pulmonary Medical History: Denies: Hx Asthma, Hx Bronchitis, Hx COPD, Hx Pneumonia Neurological Medical History: Denies: Hx Cerebrovascular Accident, Hx Seizures Endocrine Medical History: Reports: Hx Hypothyroidism Renal/ Medical History: Denies: Hx Peritoneal Dialysis GI Medical History: Denies: Hx Gastroesophageal Reflux Disease Musculoskeletal Medical History: Denies Hx Arthritis Psychiatric Medical History: Reports: Hx Depression Past Surgical History: Reports: Hx Cholecystectomy, Hx Genitourinary Surgery - prostate ablasion, Hx Orthopedic Surgery, Hx Testicular Surgery - Immunizations Hx Diphtheria, Pertussis, Tetanus Vaccination: No Review of Systems - Review of Systems Notes: Constitutional: denies: Chills, Diaphoresis, Fever, Malaise, Weakness EENT: denies: Eye discharge, Blurred vision, Tearing, Double vision, Nose congestion, Nose discharge, Throat swelling, Mouth pain Cardiovascular: denies: Palpitations, Heart racing, Orthopnea, Dyspnea, Chest pain Respiratory: denies: Cough, Hurts to breathe, Wheezing, Shortness of breath Gastrointestinal: denies: Abdominal pain, Diarrhea, Nausea, Vomiting, Black stools, bright red blood in stool Genitourinary: Hematuria, urinary retention, bladder spasms Musculoskeletal: denies: Joint pain, Joint swelling, Muscle pain, Muscle stiffness, back pain Hematologic/Lymphatic: denies: Anemia, Easy bleeding, Easy bruising, Blood clots Neurological/Psychological: denies: Confusion, Dementia, Depression, Loss of consciousness Skin: No lesions, no masses, no skin breakdown, no abscesses Physical Exam - Vital signs Vitals: Temp Pulse Resp BP Pulse Ox 98.1 F 108 H 24 H 174/95 H 98 11/26/18 17:07 11/26/18 17:07 11/26/18 17:07 11/26/18 17:07 11/26/18 17:07 Interpretation: Normal - General General appearance: Appears well, Alert, Anxious In distress: Moderate - Due to urinary retention - HEENT Head: Normocephalic, Atraumatic Eyes: Normal Pupils: PERRL - Respiratory Respiratory status: No respiratory distress Chest status: Nontender Breath sounds: Normal Chest palpation: Normal - Cardiovascular Rhythm: Regular Heart sounds: Normal auscultation Murmur: No - Abdominal Inspection: Normal Distension: No distension Bowel sounds: Normal Tenderness: Nontender Organomegaly: No organomegaly - Genitourinary Inspection: Blood at meatus Cremasteric reflex: Normal Scrotum: Normal - Back Back: Normal, Nontender - Extremities General upper extremity: Normal inspection, Nontender, Normal color, Normal ROM, Normal temperature General lower extremity: Normal inspection, Nontender, Normal color, Normal ROM, Normal temperature, Normal weight bearing. No: Glen's sign - Neurological Neuro grossly intact: Yes Cognition: Normal Orientation: AAOx4 Grecia Coma Scale Eye Opening: Spontaneous Newcomb Coma Scale Verbal: Oriented Grecia Coma Scale Motor: Obeys Commands Grecia Coma Scale Total: 15 Speech: Normal Motor strength normal: LUE, RUE, LLE, RLE Sensory: Normal - Psychological Associated symptoms: Normal affect, Normal mood - Skin Skin Temperature: Warm Skin Moisture: Dry Skin Color: Normal Course - Re-evaluation Re-evalutation: 11/27/18 01:45 I was asked to come to the bedside as the nurse was having a difficult time getting catheter in. A Coude catheter was used by myself to enter the bladder. Irrigation was performed at bedside with the daily catheter and normal saline. Large amount of clots were removed. The blood and urine then began to drain. Patient had relief of his symptoms. Patient then was irrigated with 8000 mL of normal saline with a continuous bladder [employer] solar[employer] administrator. Patient tolerated procedure well. Urine/fluid appeared to be pinkish still after several hours of irrigation but patient was comfortable and tolerating procedure well. The catheter was left in place. 11/27/18 01:48 Laboratory 11/26/18 11/26/18 11/26/18 12:35 12:35 12:35 WBC 4.5 RBC 4.66 Hgb 14.6 Hct 42.6 MCV 91 MCH 31.3 MCHC 34.2 RDW 13.5 Plt Count 194 Seg Neutrophils % 65.4 Lymphocytes % 19.3 Monocytes % 11.8 Eosinophils % 2.7 Basophils % 0.8 Absolute Neutrophils 2.9 Absolute Lymphocytes 0.9 Absolute Monocytes 0.5 Absolute Eosinophils 0.1 Absolute Basophils 0.0 PT 12.9 INR 0.93 APTT 23.5 Sodium 138.5 Potassium 3.9 Chloride 105 Carbon Dioxide 22 Anion Gap 12 BUN 21 H Creatinine 1.00 Est GFR ( Amer) > 60 Est GFR (Non-Af Amer) > 60 Glucose 116 H Calcium 9.6 Total Bilirubin 0.4 Direct Bilirubin 0.3 Neonat Total Bilirubin Not Reportable Neonat Direct Bilirubin Not Reportable Neonat Indirect Bili Not Reportable AST 19 ALT 31 Alkaline Phosphatase 55 Total Protein 6.9 Albumin 4.5 - Vital Signs Vital signs: Temp Pulse Resp BP Pulse Ox 98.4 F 108 H 16 144/89 H 95 11/27/18 01:36 11/26/18 17:07 11/27/18 01:36 11/27/18 01:36 11/27/18 01:36 - Laboratory Result Diagrams: 11/26/18 12:35 11/26/18 12:35 Laboratory results interpreted by me: 11/26/18 12:35 BUN 21 H Glucose 116 H Critical Care Note - Critical Care Note Total time excluding time spent on procedures (mins): 35 Comments: Immediate attention for severe distress due to bladder outlet obstruction. Bedside procedures, Discharge - Discharge Clinical Impression: Acute urinary retention Hematuria Qualifiers: Hematuria type: gross Qualified Code(s): R31.0 - Gross hematuria Condition: Good Disposition: HOME, SELF-CARE Instructions: Wolfe Catheter Care ([facility]), Urinary Retention ([facility]) Additional Instructions: Return if needed. Follow-up with urologist today. Prescriptions: Ciprofloxacin HCl [Cipro 500 mg Tablet] 500 mg PO BID 5 Days #10 tablet Referrals: LOCALMD,NO [NO LOCAL MD] - Follow up as needed
[2018-11-26] MEDS ORDERED: CEFTRIAXONE 1 GM/D5W RTU 1 GM/50 ML RTUPB IV ONE (20:38)
[2018-11-27] MEDS ORDERED: HYDROCODONE/ACETAMINOPHEN 5-325 MG (6 TAB/ER DISP) PO PRN (01:49)
[2018-11-27 02:30] VITALS: BP 152/89
== END 2018-11-27 02:33 | disposition home or self-care (01) ==
LOC: ER 17:00
DX: R33.9 Retention of urine, unspecified (principal); R31.0 Gross hematuria; I25.10 Atherosclerotic heart disease of native coronary artery without angina pectoris; I25.2 Old myocardial infarction; I10 Essential (primary) hypertension; E03.9 Hypothyroidism, unspecified; Z90.49 Acquired absence of other specified parts of digestive tract
CPT/HCPCS: 96376; 99285; 51702; 96375; 96365; 36415; 85025; 85610; 85730; 80053; C1758; J2270; J1170; J2405; J0696; A9270; J3490

== ENCOUNTER → 2020-07-21 | Outpatient (CLI) | payer MEDICARE, MEDICAID ==
--- NOTE | 2020-07-21 15:56 | RADIOLOGY REPORT (SQ) ---
EXAM DESCRIPTION: BARIUM SWALLOW ESOPHAGUS IMAGES COMPLETED DATE/TIME: 07/21/2020 9:01 am REASON FOR STUDY: R13.12 DYSPHAGIA, OROPHARYNGEAL PHASE R13.12 DYSPHAGIA, OROPHARYNGEAL PHASE COMPARISON: None. TECHNIQUE: Under fluoroscopic guidance, patient ingested effervescent granules followed by thick and thin barium. Fluoroscopic spot images and routine radiographic images acquired and stored on PACS. 12 MM BARIUM TABLET GIVEN: Barium tablet passed through the esophagus and into the stomach without de lay. LIMITATIONS: None. FLUOROSCOPY TIME: FLUORO TIME: 1.7 minutes 5 images saved to PACS. FINDINGS: NEUROMUSCULAR COORDINATION OF SWALLOW: Normal. No aspiration. Mild cricopharyngeus hypert rophy. ESOPHAGEAL MOTILITY: Normal peristalsis. No esophageal spasm. ESOPHAGEAL MUCOSA: Normal mucosa without masses or ulceration. GASTRO-ESOPHAGEAL JUNCTION: No hiatal hernia. Moderate gastroesophageal reflux to the midesophagus. NON-GI TRACT STRUCTURES: No significant finding. OTHER: No other significant finding. IMPRESSION: MODERATE GASTROESOPHAGEAL REFLUX. OTHERWISE UNREMARKABLE STUDY. . RECOMMENDATION: None COMMENT: None Quality ID [id number]: Final reports for procedures using fluoroscopy that document radiation exposure santosh colt, or exposure time and number of fluorographic images (if radiation exposure indices are not avail able) TECHNICAL DOCUMENTATION: JOB ID: [id number] 2010 [employer]- All Rights Reserved Reading location - IP/workstation name: [email or web address] [id number]
== END ==
LOC: RAD 08:14
PROVIDERS: ATTEND Internal Medicine Gastroenterology
DX: R13.12 Dysphagia, oropharyngeal phase (principal)
CPT/HCPCS: 74220